=== PATIENT | female | born 2000 | race African-American/Black ===

== ENCOUNTER 2019-01-19 23:10 | Emergency (ER) | payer MEDICAID ==
[~2019-01-19] VITALS: Ht 167.6 cm; Wt 63.0 kg
[2019-01-20 03:43] VITALS: BP 123/75
== END 2019-01-20 03:44 | disposition home or self-care (01) ==
LOC: ER 23:10
DX: F41.0 Panic disorder [episodic paroxysmal anxiety] (principal); R07.89 Other chest pain; F12.10 Cannabis abuse, uncomplicated; F17.200 Nicotine dependence, unspecified, uncomplicated
CPT/HCPCS: 81025; 93005; 99283; Z7610